=== PATIENT | female | born 1940 | race Caucasian/White ===

== ENCOUNTER 2017-10-11 16:21 | Outpatient (CLI) | payer MEDICARE | END 2017-10-11 16:22 | disposition home or self-care (01) | LOC: BICRAD 16:21 | PROVIDERS: ATTEND Family Medicine | DX: M81.0 Age-related osteoporosis without current pathological fracture (principal); M17.12 Unilateral primary osteoarthritis, left knee ==

== ENCOUNTER 2018-04-22 13:49 | Outpatient (CLI) | payer MEDICARE | END 2018-04-22 13:50 | disposition home or self-care (01) | LOC: BICMAMMO 13:49 | PROVIDERS: ATTEND Family Medicine | DX: Z12.31 Encounter for screening mammogram for malignant neoplasm of breast (principal) | CPT/HCPCS: 77063; 77067 ==

== ENCOUNTER 2019-01-10 09:32 | Outpatient (CLI) | payer MEDICARE ==
--- NOTE | 2019-01-10 12:31 | BD ---
DEXA BONE DENSITY STUDY: HISTORY: Post menopausal. FINDINGS: Lumbar Spine: BMD (g/cm2) L1 0.869 T-Score: -1.1 L2 1.066 T-Score: +0.3 L3 1.120 T-Score: +0.3 L4 1.071 T-Score: +0.1 L1-L4 1.035 T-Score: -0.1 Femoral Neck: 0.664 T-Score: -1.7 Total Femur: 0.809 T-Score: -1.1 Impression: 1. Osteopenia of the left femoral neck and normal bone mineral density of the lumbar spine. 2. Ten-year fracture risk major osteoporotic fracture is 20% and of a hip fracture is 4.3%. These f racture probabilities are calculated for an untreated patient. POS: OFF
== END 2019-01-10 09:33 | disposition home or self-care (01) ==
LOC: BICMAMMO 09:32
PROVIDERS: ATTEND Family Medicine
DX: M81.0 Age-related osteoporosis without current pathological fracture (principal); M85.852 Other specified disorders of bone density and structure, left thigh
CPT/HCPCS: 77080

== ENCOUNTER 2019-06-01 10:54 | Outpatient (CLI) | payer MEDICARE ==
--- NOTE | 2019-06-01 12:02 | MMO ---
Bilateral MAMMO Bilat Screen [facility]. CLINICAL HISTORY: Patient is 78 years old and is seen for screening. The patient has no family history of breast cancer. The patient has no personal history of cancer. VIEWS: The views performed were: bilateral craniocaudal with tomosynthesis and bilateral mediolateral oblique with tomosynthesis. FILMS COMPARED: The present examination has been compared to prior imaging studies performed at [facility] on 04/04/2015, 04/14/2016, 04/20/2017 and 04/22/2018. This study has been interpreted with the assistance of computer-aided detection. MAMMOGRAM FINDINGS: The breasts are heterogeneously dense, which could obscure a lesion on mammography. There are no suspicious masses, suspicious calcifications, or new areas of architectural distortion. IMPRESSION: THERE IS NO MAMMOGRAPHIC EVIDENCE OF MALIGNANCY. A ROUTINE FOLLOW-UP MAMMOGRAM IN 1 YEAR IS RECOMMENDED. THE RESULTS OF THIS EXAM WERE SENT TO THE PATIENT. ACR BI-RADS Category 1 - Negative MAMMOGRAPHY NOTE: 1. A negative mammogram report should not delay a biopsy if a dominant of clinically suspicious mass is present. 2. Approximately 10% to 15% of breast cancers are not detected by mammography. 3. Adenosis and dense breasts may obscure an underlying neoplasm. Reported by: HENRY العراقي MD Electonically Signed: [id number]
== END 2019-06-01 10:55 | disposition home or self-care (01) ==
LOC: BICMAMMO 10:54
PROVIDERS: ATTEND Family Medicine
DX: Z12.31 Encounter for screening mammogram for malignant neoplasm of breast (principal)
CPT/HCPCS: 77063; 77067

== ENCOUNTER 2021-07-03 13:15 | Outpatient (CLI) | payer MEDICARE | END 2021-07-03 13:16 | disposition home or self-care (01) | LOC: BICMAMMO 13:15 | PROVIDERS: ATTEND Family Medicine | DX: Z12.31 Encounter for screening mammogram for malignant neoplasm of breast (principal) | CPT/HCPCS: 77063; 77067 ==

== ENCOUNTER 2022-07-30 13:25 | Outpatient (CLI) | payer MEDICARE | END 2022-07-30 13:26 | disposition home or self-care (01) | LOC: BICMAMMO 13:25 | PROVIDERS: ATTEND Family Medicine | DX: Z12.31 Encounter for screening mammogram for malignant neoplasm of breast (principal) | CPT/HCPCS: 77063; 77067 ==

== ENCOUNTER 2023-08-24 10:49 | Outpatient (CLI) | payer MEDICARE | END 2023-08-24 10:50 | disposition home or self-care (01) | LOC: BICMAMMO 10:49 | PROVIDERS: ATTEND Family Medicine | DX: Z12.31 Encounter for screening mammogram for malignant neoplasm of breast (principal) | CPT/HCPCS: 77063; 77067 ==